=== PATIENT | female | born 1985 | race Caucasian/White ===

== ENCOUNTER 2019-02-05 15:41 | Outpatient (CLI) | payer MEDICAID ==
--- NOTE | 2019-02-05 16:29 | RAD ---
THREE VIEWS RIGHT ANKLE: 02/05/19 COMPARISON: None. HISTORY: Acute right ankle pain. FINDINGS: Three views of the right ankle shows no evidence of acute fracture or dislocation. No soft tissue swe lling is seen. No degenerative changes are present. IMPRESSION: No evidence of acute osseous abnormality. POS: [facility]
== END 2019-02-05 15:42 | disposition home or self-care (01) ==
LOC: BICRAD 15:41
PROVIDERS: ATTEND Family Medicine
DX: M25.571 Pain in right ankle and joints of right foot (principal)

== ENCOUNTER 2019-02-15 09:11 | Outpatient (CLI) | payer OTHER ==
[2019-02-15] MEDS ORDERED: Gadobenate Dimeglumine 529 MG/1 ML (20ML VIAL) ONE (11:27)
--- NOTE | 2019-02-19 16:08 | MRI ---
MRI BRAIN AND INTERNAL AUDITORY CANALS WITH AND WITHOUT CONTRAST: Date: 02/19/2019 HISTORY: 33-year-old female with bilateral sensorineural hearing loss and tinnitus TECHNIQUE: Multiple sequences obtained in axial, sagittal, and coronal planes; both whole brain images and thin slices through the IACs, pre and post IV injection of gadolinium-based contrast agent. FINDINGS: The ventricles are normal in size and configuration. There is no major intra-axial signal abnormality , restricted diffusion, abnormal intra-axial enhancement, mass, midline shift or any other mass effect, recent intra-axial hemorrhage, or extra-axial fluid collection. There is no abnormal enhancement, mass, or morphologic abnormality, involving the cerebellopontine an gles, seventh-8th nerve complexes, internal auditory canals, cochleae, vestibules, vestibular aqueducts, or semicircular canals. IMPRESSION: Normal.
== END 2019-02-15 09:12 | disposition home or self-care (01) ==
LOC: BICMRI 09:11
PROVIDERS: ATTEND Otolaryngology Plastic Surgery within the Head & Neck
DX: H90.5 Unspecified sensorineural hearing loss (principal)
CPT/HCPCS: 70553; A9577

== ENCOUNTER 2019-09-30 08:49 | Outpatient (CLI) | payer OTHER ==
--- NOTE | 2019-09-30 10:29 | RAD ---
LEFT ANKLE 3 VIEWS: Date: 09/30/19 HISTORY: Left lateral ankle pain. FINDINGS/IMPRESSION: The ankle mortise is maintained. No fracture, dislocation, or bony destruction seen. A small plantar calcaneal spur is present. POS: [facility]
== END 2019-09-30 08:50 | disposition home or self-care (01) ==
LOC: RAD 08:49
PROVIDERS: ATTEND Family Medicine
DX: M25.572 Pain in left ankle and joints of left foot (principal); M77.32 Calcaneal spur, left foot

== ENCOUNTER 2020-10-14 09:50 | Outpatient (CLI) | payer OTHER ==
--- NOTE | 2020-10-14 10:22 | ULT ---
Pelvic sonogram transabdominal and transvaginal imaging with duplex evaluation HISTORY: Dysmenorrhea. FINDINGS: Urinary bladder is incompletely distended. Uterus has a homogeneous echotexture and measure s up to 10.0 cm. Endometrium is 1.2 cm. No free fluid. Right ovary is 3.2 cm length. Left ovary 3.2 cm. Each has a normal appearance with good color and spe ctral Doppler flow. IMPRESSION : Thickened endometrium 1.2 cm. No abnormalities otherwise demonstrated.
== END 2020-10-14 09:51 | disposition home or self-care (01) ==
LOC: BICULT 09:50
PROVIDERS: ATTEND Family Medicine
DX: N94.6 Dysmenorrhea, unspecified (principal); N93.9 Abnormal uterine and vaginal bleeding, unspecified; R93.89 Abnormal findings on diagnostic imaging of other specified body structures
CPT/HCPCS: 76856

== ENCOUNTER 2020-11-27 09:44 | Outpatient (CLI) | payer OTHER ==
--- NOTE | 2020-11-27 10:18 | ULT ---
Pelvic sonogram transabdominal imaging with duplex evaluation HISTORY: Abnormal uterine bleeding. FINDINGS: Urinary bladder is unremarkable. Uterus has a heterogeneous echotexture and is 10.9 cm lalito th. Endometrium is 0.8 cm. No free fluid. Each ovary has a normal appearance with good color and spectral Doppler flow. IMPRESSION : Normal endometrium. No abnormalities are demonstrated.
== END 2020-11-27 09:45 | disposition home or self-care (01) ==
LOC: BICULT 09:44
PROVIDERS: ATTEND Family Medicine
DX: N93.9 Abnormal uterine and vaginal bleeding, unspecified (principal); R93.89 Abnormal findings on diagnostic imaging of other specified body structures
CPT/HCPCS: 76856; 93976

== ENCOUNTER 2022-11-09 13:11 | Outpatient (CLI) | payer OTHER | END 2022-11-09 13:12 | disposition home or self-care (01) | LOC: RAD 13:11 | PROVIDERS: ATTEND Nurse Practitioner Family | DX: M25.511 Pain in right shoulder (principal) ==

== ENCOUNTER 2023-12-18 12:22 | Outpatient (CLI) | payer OTHER | END 2023-12-18 12:23 | disposition home or self-care (01) | LOC: RAD 12:22 | PROVIDERS: ATTEND Family Medicine | DX: R06.02 Shortness of breath (principal); R05.9 Cough, unspecified; I51.7 Cardiomegaly | CPT/HCPCS: 71046 ==